=== PATIENT | female | born 1950 | race Hispanic/Latino ===

== ENCOUNTER 2018-05-26 15:08 | Outpatient (CLI) | payer OTHER | END 2018-05-26 15:09 | disposition home or self-care (01) | LOC: LABHHL 15:08 | PROVIDERS: ATTEND Surgery | DX: N60.01 Solitary cyst of right breast (principal); N60.02 Solitary cyst of left breast | CPT/HCPCS: 88112 ==

== ENCOUNTER 2019-10-13 13:28 | Outpatient (CLI) | payer MEDICARE, OTHER ==
--- NOTE | 2019-10-14 15:39 | Ultrasound Report ---
COMPLETE BILATERAL BREAST ULTRASOUND HISTORY: Bilateral mammographic asymmetries. COMPARISON: None. FINDINGS: Complete sonographic evaluation of the right breast including imaging of the four quadrants and subar eolar areas of the right breast were performed. Multiple benign subcentimeter cysts at 12:00, 2:00 an d at 3:00. Relatively dense shadowing fibroglandular structures at 6:00 6 m from the nipple and at 4: 00 4 cm from the nipple. No solid mass or suspicious shadowing. Intact breast implant. Complete sonographic evaluation of the left breast including imaging of the four quadrants and subare olar areas of the left breast were performed. Several benign subcentimeter cysts and no mass or suspi cious shadowing. Intact rest implant IMPRESSION: No suspicious sonographic findings. Bilateral benign cysts. Recommend annual breast MRI given the ext mino density of the breasts. BIRADS 2: Benign Signer Name: James Sutton MD Signed: 10/14/2019 3:35 PM Workstation Name: [id number]
== END 2019-10-13 13:29 | disposition home or self-care (01) ==
LOC: SPVWC 13:28
PROVIDERS: ATTEND Surgery
DX: N60.02 Solitary cyst of left breast (principal); N60.01 Solitary cyst of right breast

== ENCOUNTER 2020-08-15 13:21 | Outpatient (CLI) | payer MEDICARE, OTHER ==
--- NOTE | 2020-08-17 08:09 | Ultrasound Report ---
EXAMINATION: Right Complete Breast Ultrasound, 08/15/2020 INDICATION: Follow-up right breast nodules. COMPARISON: Bilateral breast ultrasound 10/13/19 and right breast ultrasound 04/18/20. FINDINGS: Complete sonographic evaluation of all 4 quadrants and retroareolar region was performed. There are multiple small simple and mildly complicated cysts scattered throughout the right breast. T he largest cyst measures approximately 1.2 cm at the 12:00 position. There is a right axillary lymph node measuring 7.6 mm short axis with a cortex measuring 2.9 mm. Yaw ical thickening seen previously has resolved. No new suspicious abnormality is seen.. IMPRESSION: 1. Cortical thickening involving the right axillary lymph node has resolved and was likely reactive. 2. Multiple benign-appearing cysts scattered throughout the right breast. No suspicious abnormality. Follow up recommendation: Routine yearly BI-RADS Category 2: Benign. Signer Name: Junior Palmer MD Signed: 08/15/2020 4:12 PM Workstation Name: [id number]
== END 2020-08-15 13:22 | disposition home or self-care (01) ==
LOC: SPVWC 13:21
PROVIDERS: ATTEND Surgery
DX: N60.11 Diffuse cystic mastopathy of right breast (principal); N60.12 Diffuse cystic mastopathy of left breast; R92.8 Other abnormal and inconclusive findings on diagnostic imaging of breast; N64.4 Mastodynia

== ENCOUNTER 2021-02-07 14:17 | Outpatient (CLI) | payer MEDICARE, OTHER ==
--- NOTE | 2021-02-08 15:11 | Mammography Report ---
DIGITAL SCREENING MAMMOGRAM WITH CAD, 02/08/2021 CLINICAL INFORMATION / INDICATION: Routine screening TECHNIQUE: Digital bilateral 2D mammography was obtained in the craniocaudal and mediolateral obliqu e projections. This examination was interpreted with the benefit of Computer-Aided Detection analysis . COMPARISON: 08/19/2019 FINDINGS: Breast Density: The breasts are extremely dense, which lowers the sensitivity of mammography. No dominant mass, suspicious calcifications, or architectural distortion in either breast. Bilateral implants are again noted. IMPRESSION: No mammographic evidence of malignancy. Follow up recommendation: Routine yearly BI-RADS Category 2: Benign. A "normal" or negative report should not discourage follow up or biopsy of a clinically significant f inding. A written summary of these findings will be mailed to the patient. The patient will be entered into a mammography reporting system which will generate a reminder letter for the patient's next appointmen t at the appropriate interval. [employer] recommends yearly mammograms starting at age 40 and continuing as l minda as a woman is in good health. Breast MRI is recommended for women with an approximate 20-25% or greater lifetime risk of breast cancer, including women with a strong family history of breast or ova alo cancer or who have been treated for Hodgkin's disease. Signer Name: Evangelist Pizaon MD Signed: 02/08/2021 3:07 PM Workstation Name: [id number]
== END 2021-02-07 14:18 | disposition home or self-care (01) ==
LOC: SPVWC 14:17
PROVIDERS: ATTEND Surgery
DX: Z12.31 Encounter for screening mammogram for malignant neoplasm of breast (principal)
CPT/HCPCS: 77067